=== PATIENT | female | born 1960 | race American Indian/Alaskan Native ===

== ENCOUNTER 2018-12-24 10:10 | Emergency (ER) | payer MEDICARE, MEDICAID ==
[2018-12-24 10:30] VITALS: BP 99/69
--- NOTE | 2018-12-24 10:46 | EDM.PDOC ---
ED HPI GENERAL MEDICAL PROBLEM - General Chief Complaint: Fever Stated Complaint: FEVER Time Seen by Provider: 12/24/18 10:35 Source of Information: Reports: Other (caregiver) History Limitations: Reports: Other - History of Present Illness INITIAL COMMENTS - FREE TEXT/NARRATIVE: This 58 yo female patient was brought to the ED by [facility] due to breathing difficulties and a fever. The caregiver reports the patient started to have a fever this morning and has been breathing fast today. The patient was not acting this way yesterday. The caregiver reports no other people in the residential are ill or have fevers. The patient has not been given anything for her current symptoms. The caregiver reports the patients liver functions have been closely monitored. The patient has been getting her medications as prescribed and did get all of her medications this morning. Onset: Today Duration: Constant Location: Reports: Chest, Generalized Quality: Reports: Other Severity: Severe Improves with: Reports: None Worsens with: Reports: None Context: Reports: Other Associated Symptoms: Reports: Fever/Chills, Shortness of Breath Treatments PSYCHOPAEDIC NURSE: Reports: NSAIDS - Related Data Allergies Allergy/AdvReac Type Severity Reaction Status Date / Time thioridazine HCl Allergy Seizure Verified 12/24/18 10:45 [From [place]] Home Meds: Home Meds Calcium Carbonate/Vitamin D3 [Calcium 600 + Vit D 400 Softgl] 1 tab PO BID 04/25 [History] Carbamide Peroxide [Debrox] 3 - 4 drop EARBOTH .TUES 04/25/16 [History] FA/Lycopene/Lut/MV,Ca,Iron,Min [Centrum] 1 tab PO DAILY 04/25/16 [History] Levothyroxine [Synthroid] 50 mcg PO DAILY 04/25/16 [History] OLANZapine [Zyprexa] 10 mg PO BID 04/25/16 [History] carBAMazepine [Carbamazepine] 500 mg PO BID 04/25/16 [History] traZODone 50 mg PO BEDTIME 04/25/16 [History] Divalproex Sodium [Depakote] 250 mg PO BID 05/07/18 [History] Lactulose 10 gm PO DAILY PRN 05/07/18 [History] Past Medical History HEENT History: Reports: None Cardiovascular History: Reports: None Respiratory History: Reports: None Gastrointestinal History: Reports: None Genitourinary History: Reports: Other (See Below) Other Genitourinary History: incontinent of urine OIL CHANGER History: Reports: None Musculoskeletal History: Reports: None Neurological History: Reports: Seizure Psychiatric History: Reports: Learning Disability, Other (See Below) Other Psychiatric History: bipolar Endocrine/Metabolic History: Reports: Hypothyroidism Hematologic History: Reports: None Immunologic History: Reports: None Oncologic (Cancer) History: Reports: None Dermatologic History: Reports: None - Infectious Disease History Infectious Disease History: Reports: Chicken Pox - Past Surgical History Head Surgeries/Procedures: Reports: None HEENT Surgical History: Reports: None Social & Family History - Caffeine Use Caffeine Use: Reports: None ED ROS GENERAL - Review of Systems Review Of Systems: ROS reveals no pertinent complaints other than HPI. ED EXAM, GENERAL - Physical Exam Exam: See Below Exam Limited By: Other (The patient is a [facility] patient and does not communicate verbally) Eye Exam: Bilateral Eye: EOMI, Normal Inspection, PERRL Ears: Normal External Exam, Normal Canal, Hearing Grossly Normal, Normal TMs Nose: Normal Inspection, Normal Mucosa, No Blood Throat/Mouth: Normal Inspection, Normal Lips, Normal Teeth, Normal Gums, Normal Oropharynx, Normal Voice, No Airway Compromise Head: Atraumatic, Normocephalic Neck: Normal Inspection, Supple, Non-Tender, Full Range of Motion Respiratory/Chest: Decreased Breath Sounds, Rhonchi Cardiovascular: No Edema, No Gallop, No JVD, No Murmur, No Rub, Tachycardia GI/Abdominal: Normal Bowel Sounds, Soft, Non-Tender, No Organomegaly, No Distention, No Abnormal Bruit, No Mass, Other (obese) (Female) Exam: Deferred Rectal (Female) Exam: Deferred Back Exam: Normal Inspection, Full Range of Motion, NT Extremities: Normal Inspection, Other (The patient has a boot on her right ankle for a sprined ankle (2 weeks ago)) Neurological: Alert, Other (The patient is non-verbal) Skin Exam: Increased Warmth Lymphatic: No Adenopathy Course - Vital Signs Last Recorded V/S: Last Vital Signs Temp 39.7 C H 12/24/18 12:16 Pulse 148 H 12/24/18 10:18 Resp 48 H 12/24/18 10:18 BP 99/69 12/24/18 10:18 Pulse Ox 93 L 12/24/18 10:18 - Orders/Labs/Meds Orders: Active Orders 24 hr Category Date Time Status CULTURE BLOOD [BC] Stat Lab 12/24/18 10:24 Ordered CULTURE BLOOD [] Stat Lab 12/24/18 10:36 Received CULTURE STREP A CONFIRMATION [] Stat Lab 12/24/18 10:24 Results CULTURE URINE [] Urgent Lab 12/24/18 10:23 Received STREP SCRN A RAPID W CULT CONF [] Stat Lab 12/24/18 10:24 Ordered Sodium Chloride 0.9% [Normal Saline] 1,000 ml Med 12/24/18 11:52 Ordered IV .BOLUS Blood Culture x2 Reflex Set [OM.PC] Stat Oth 12/24/18 10:23 Ordered Medication Orders Sodium Chloride (Normal Saline) 1,000 mls @ 999 mls/hr IV .BOLUS ONE Stop: 12/24/18 12:52 Last Admin: 12/24/18 12:16 Dose: 999 mls/hr Labs: Laboratory Tests 12/24/18 12/24/18 12/24/18 Range/Units 10:23 10:36 10:36 WBC 6.9 (5.0-10.0) 10^3/uL RBC 4.00 L (4.2-5.4) 10^6/uL Hgb 13.9 (12.0-16.0) g/dL Hct 40.9 (37.0-47.0) % MCV 102.3 H (80-100) fL MCH 34.8 H (27.0-34.0) pg MCHC 34.0 (33.0-35.0) g/dL Plt Count 169 (150-450) 10^3/uL Neut % (Auto) 92.1 H (42.2-75.2) % Lymph % (Auto) 6.4 L (20.5-50.1) % [place] % (Auto) 0.7 L (2-8) % Eos % (Auto) 0.7 L (1.0-3.0) % Baso % (Auto) 0.1 (0.0-1.0) % Sodium (135-145) mmol/L Potassium (3.6-5.0) mmol/L Chloride (101-111) mmol/L Carbon Dioxide (21.0-31.0) mmol/L Anion Gap BUN (7-18) mg/dL Creatinine (0.6-1.3) mg/dL Est Cr Clr Drug Dosing mL/min Estimated GFR (MDRD) BUN/Creatinine Ratio Glucose (74-105) mg/dL Lactic Acid 5.2 H (0.5-2.2) mmol/L Calcium (8.4-10.2) mg/dl Total Bilirubin (0.2-1.0) mg/dL AST (10-42) IU/L ALT (10-60) IU/L Alkaline Phosphatase (42-121) IU/L Ammonia (11-35) umol/L Total Protein (6.7-8.2) g/dl Albumin (3.2-5.5) g/dl Globulin Albumin/Globulin Ratio Urine Color Yellow (YELLOW) Urine Appearance Turbid (CLEAR) Urine pH 5.5 (5.0-9.0) Ur Specific [place] 1.020 (1.005-1.030) Urine Protein 30 H (NEGATIVE) Urine Glucose (UA) Negative (NEGATIVE) Urine Ketones Negative (NEGATIVE) Urine Occult Blood Moderate H (NEGATIVE) Urine Nitrite Negative (NEGATIVE) Urine Bilirubin Negative (NEGATIVE) Urine Urobilinogen 0.2 (0.2-1.0) mg/dL Ur Leukocyte Esterase Large H (NEGATIVE) Urine RBC 30-40 H /HPF Urine WBC >100 H (0-5/HPF) /HPF Ur Epithelial Cells Few /HPF Amorphous Sediment Few (0/HPF) /HPF Urine Bacteria Moderate H (0-FEW/HPF) /HPF Urine Mucus Rare /LPF 12/24/18 12/24/18 Range/Units 10:36 11:07 WBC (5.0-10.0) 10^3/uL RBC (4.2-5.4) 10^6/uL Hgb (12.0-16.0) g/dL Hct (37.0-47.0) % MCV (80-100) fL MCH (27.0-34.0) pg MCHC (33.0-35.0) g/dL Plt Count (150-450) 10^3/uL Neut % (Auto) (42.2-75.2) % Lymph % (Auto) (20.5-50.1) % [place] % (Auto) (2-8) % Eos % (Auto) (1.0-3.0) % Baso % (Auto) (0.0-1.0) % Sodium 138 (135-145) mmol/L Potassium 4.3 (3.6-5.0) mmol/L Chloride 104 (101-111) mmol/L Carbon Dioxide 18.0 L (21.0-31.0) mmol/L Anion Gap 20.3 BUN 33 H (7-18) mg/dL Creatinine 1.3 (0.6-1.3) mg/dL Est Cr Clr Drug Dosing 36.40 mL/min Estimated GFR (MDRD) 42 BUN/Creatinine Ratio 25.38 Glucose 211 H (74-105) mg/dL Lactic Acid (0.5-2.2) mmol/L Calcium 8.5 (8.4-10.2) mg/dl Total Bilirubin 0.9 (0.2-1.0) mg/dL AST 120 H (10-42) IU/L ALT 88 H (10-60) IU/L Alkaline Phosphatase 96 (42-121) IU/L Ammonia 50 H (11-35) umol/L Total Protein 7.1 (6.7-8.2) g/dl Albumin 3.5 (3.2-5.5) g/dl Globulin 3.6 Albumin/Globulin Ratio 0.97 Urine Color (YELLOW) Urine Appearance (CLEAR) Urine pH (5.0-9.0) Ur Specific [place] (1.005-1.030) Urine Protein (NEGATIVE) Urine Glucose (UA) (NEGATIVE) Urine Ketones (NEGATIVE) Urine Occult Blood (NEGATIVE) Urine Nitrite (NEGATIVE) Urine Bilirubin (NEGATIVE) Urine Urobilinogen (0.2-1.0) mg/dL Ur Leukocyte Esterase (NEGATIVE) Urine RBC /HPF Urine WBC (0-5/HPF) /HPF Ur Epithelial Cells /HPF Amorphous Sediment (0/HPF) /HPF Urine Bacteria (0-FEW/HPF) /HPF Urine Mucus /LPF Meds: Medications Generic Name Dose Route Start Last Admin Trade Name Freq PRN Reason Stop Dose Admin Sodium Chloride 1,000 mls @ 999 mls/hr 12/24/18 11:52 12/24/18 12:16 Normal Saline IV 12/24/18 12:52 999 mls/hr .BOLUS ONE Administration Discontinued Medications Generic Name Dose Route Start Last Admin Trade Name Freq PRN Reason Stop Dose Admin Ceftriaxone Sodium 1,000 mg 12/24/18 11:59 12/24/18 12:17 Rocephin IVPUSH 12/24/18 12:00 1,000 mg ONETIME ONE Administration Ceftriaxone Sodium Confirm 12/24/18 12:08 12/24/18 12:17 Rocephin Administered 12/24/18 12:09 Not Given Dose 500 mg .ROUTE .STK-MED ONE Ibuprofen 400 mg 12/24/18 11:52 12/24/18 12:16 Motrin PO 12/24/18 11:53 400 mg ONETIME ONE Administration - Re-Assessments/Exams Free Text/Narrative Re-Assessment/Exam: 12/24/18 11:49 A call was placed to the [facility] in [place] to get previous lab results. The patient's ammonia was 73 on Dec 02 and 55 on November 10. The patient's creatinine was 1.1 in July. Departure - Departure Time of Disposition: 12:20 Disposition: Home, Self-Care 01 Condition: Fair Clinical Impression: UTI (urinary tract infection) Qualifiers: Urinary tract infection type: site unspecified Hematuria presence: with hematuria Qualified Code(s): N39.0 - Urinary tract infection, site not specified ; R31.9 - Hematuria, unspecified - Discharge Information *PRESCRIPTION DRUG MONITORING PROGRAM REVIEWED*: Not Applicable *COPY OF PRESCRIPTION DRUG MONITORING REPORT IN PATIENT GUSTAVO: Not Applicable Instructions: Urinary Tract Infection, Adult, [id number] Forms: ED Department Discharge Care Plan Goals: The patient's caregivers were advised of the examination and lab results during the visit. The patient was given an IV dose of Rocephin while in the ED. The patient was discharged with a script for Keflex (500 mg) to be given 1 by mouth 3 times per day for 7 days. The patient should follow-up with her primary care facility in about 1 week for continued evaluation and further management. If the patient has any additional symptoms or concerns, the patient should either return to the emergency department or visit her primary care facility. - My Orders Last 24 Hours: My Active Orders 12/24/18 10:23 CULTURE URINE [RM] Urgent Blood Culture x2 Reflex Set [OM.PC] Stat 12/24/18 10:24 CULTURE BLOOD [BC] Stat CULTURE STREP A CONFIRMATION [RM] Stat STREP SCRN A RAPID W CULT CONF [RM] Stat 12/24/18 10:36 CULTURE BLOOD [BC] Stat 12/24/18 11:52 Sodium Chloride 0.9% [Normal Saline] 1,000 ml IV .BOLUS - Assessment/Plan Last 24 Hours: My Active Orders 12/24/18 10:23 CULTURE URINE [RM] Urgent Blood Culture x2 Reflex Set [OM.PC] Stat 12/24/18 10:24 CULTURE BLOOD [BC] Stat CULTURE STREP A CONFIRMATION [RM] Stat STREP SCRN A RAPID W CULT CONF [RM] Stat 12/24/18 10:36 CULTURE BLOOD [BC] Stat 12/24/18 11:52 Sodium Chloride 0.9% [Normal Saline] 1,000 ml IV .BOLUS
[2018-12-24 11:04] LABS: ANION GAP 20.3
[2018-12-24] MEDS ORDERED: Sodium Chloride 0.9% 1,000 ML IV ONE (11:52)
[2018-12-24] MEDS ORDERED: Ibuprofen 400 MG Tab PO ONE (11:52)
[2018-12-24] MEDS ORDERED: cefTRIAXone 500 MG Vial IVPUSH ONE (11:59)
[2018-12-24] MEDS ORDERED: cefTRIAXone 500 MG Vial ONE (12:08)
== END 2018-12-24 12:58 | disposition home or self-care (01) ==
LOC: DL.ED 10:10
DX: N39.0 Urinary tract infection, site not specified (principal); Z88.8 Allergy status to other drugs, medicaments and biological substances; Z79.899 Other long term (current) drug therapy
CPT/HCPCS: 36415; 71045; 80053; 81001; 82140; 83605; 85025; 87040; 87081; 87086; 87088; 87186; 87430; 87804; 96361; 96374; 99284; A9270; J0696; J7030; 87077

== ENCOUNTER 2021-06-15 11:53 | Emergency (ER) | payer MEDICARE, MEDICAID ==
[2021-06-15 12:28] VITALS: BP 134/96; PULSE 121
--- NOTE | 2021-06-15 14:21 | EDM.PDOC ---
ED HPI GENERAL MEDICAL PROBLEM - General Chief Complaint: Cardiovascular Problem Stated Complaint: HIGH BLOOD PRESSURE 236/148 Time Seen by Provider: 06/15/21 14:00 Source of Information: Reports: Provider History Limitations: Reports: No Limitations - History of Present Illness INITIAL COMMENTS - FREE TEXT/NARRATIVE: This 60 yo female patient was brought to the ED by her care provider due to changes in behavior, elevated blood pressure and a possible UTI. The patient's blood pressure was in the 240's/150's when taken at the [place]. The patient does have a history of urinary tract infections (a sample was brought with patient). Onset: Today Duration: Constant Location: Reports: Other Quality: Reports: Other Severity: Moderate Improves with: Reports: None Worsens with: Reports: None Context: Reports: Other Associated Symptoms: Reports: Other - Related Data Allergies Allergy/AdvReac Type Severity Reaction Status Date / Time thioridazine HCl Allergy Seizure Verified 06/15/21 12:30 [From [facility]] Home Meds: Home Meds Calcium Carbonate/Vitamin D3 [Calcium 600Mg-D3 400 Unit Sfgl] 1 tab PO BID 04/25/16 [History] Carbamide Peroxide [Debrox] 3 - 4 drop EARBOTH .TUES 04/25/16 [History] FA/Lycopene/Lut/MV,Ca,Iron,Min [Centrum] 1 tab PO DAILY 04/25/16 [History] Levothyroxine [Synthroid] 50 mcg PO DAILY 04/25/16 [History] OLANZapine [Zyprexa] 10 mg PO BID 04/25/16 [History] carBAMazepine [Carbamazepine] 500 mg PO BID 04/25/16 [History] traZODone 50 mg PO BEDTIME 04/25/16 [History] Divalproex Sodium [Depakote] 250 mg PO BID 05/07/18 [History] Lactulose 10 gm PO BID 05/07/18 [History] Acetaminophen [Tylenol Extra Strength] 1,000 mg PO ASDIRECTED PRN 12/27/18 [History] Ibuprofen 400 mg PO ASDIRECTED PRN 12/27/18 [History] metFORMIN [Glucophage XR] 500 mg PO BIDMEALS 06/15/21 [History] Past Medical History HEENT History: Reports: None Cardiovascular History: Reports: None Respiratory History: Reports: None Gastrointestinal History: Reports: None Genitourinary History: Reports: Other (See Below) Other Genitourinary History: incontinent of urine APPLICATION INTEGRATION ARCHITECT History: Reports: None Musculoskeletal History: Reports: None Neurological History: Reports: Seizure Psychiatric History: Reports: Learning Disability, Other (See Below) Other Psychiatric History: bipolar Endocrine/Metabolic History: Reports: Hypothyroidism Hematologic History: Reports: None Immunologic History: Reports: None Oncologic (Cancer) History: Reports: None Dermatologic History: Reports: None - Infectious Disease History Infectious Disease History: Reports: Chicken Pox - Past Surgical History Head Surgeries/Procedures: Reports: None HEENT Surgical History: Reports: None Endocrine Surgical History: Reports: None Neurological Surgical History: Reports: None Dermatological Surgical History: Reports: None Social & Family History - Family History Family Medical History: No Pertinent Family History - Tobacco Use Tobacco Use Status *Q: Never Tobacco User - Caffeine Use Caffeine Use: Reports: Coffee - Recreational Drug Use Recreational Drug Use: No ED ROS GENERAL - Review of Systems Review Of Systems: Comprehensive ROS is negative, except as noted in HPI. ED EXAM, GENERAL - Physical Exam Exam: See Below Exam Limited By: No Limitations General Appearance: Alert, Moderate Distress, Other (Non verbal ) Eye Exam: Bilateral Eye: EOMI, PERRL Ears: Normal External Exam, Normal Canal, Hearing Grossly Normal, Normal TMs Nose: Normal Inspection, Normal Mucosa, No Blood Throat/Mouth: Other (Patient would not cooperate with evaluation.) Head: Atraumatic, Normocephalic Neck: Normal Inspection, Supple, Non-Tender, Full Range of Motion Respiratory/Chest: No Respiratory Distress, Lungs Clear, Normal Breath Sounds, No Accessory Muscle Use, Chest Non-Tender Cardiovascular: Normal Peripheral Pulses, Regular Rate, Rhythm, No Edema, No Gallop, No JVD, No Murmur, No Rub GI/Abdominal: Normal Bowel Sounds, Soft, Non-Tender, No Organomegaly, No Distention, No Abnormal Bruit, No Mass (Female) Exam: Deferred Rectal (Female) Exam: Deferred Back Exam: Normal Inspection, Full Range of Motion, NT Extremities: Normal Inspection, No Pedal Edema Neurological: Alert Psychiatric: Other Skin Exam: Warm, Dry, Intact, Normal Color, No Rash Lymphatic: No Adenopathy Course - Vital Signs Last Recorded V/S: Last Vital Signs Temp 98.2 F 06/15/21 12:27 Pulse 121 H 06/15/21 12:27 Resp 20 06/15/21 12:27 BP 134/96 H 06/15/21 12:27 Pulse Ox 96 06/15/21 12:27 - Orders/Labs/Meds Orders: Active Orders 24 hr Category Date Time Status CULTURE URINE [RM] Stat Lab 06/15/21 12:35 Received Labs: Laboratory Tests 06/15/21 Range/Units 12:35 Urine Color Yellow (YELLOW) Urine Appearance Slightly cloudy (CLEAR) Urine pH 7.5 (5.0-9.0) Ur Specific [place] 1.020 (1.005-1.030) Urine Protein 30 H (NEGATIVE) Urine Glucose (UA) Negative (NEGATIVE) Urine Ketones Negative (NEGATIVE) Urine Occult Blood Trace-intact H (NEGATIVE) Urine Nitrite Positive H (NEGATIVE) Urine Bilirubin Negative (NEGATIVE) Urine Urobilinogen 0.2 (0.2-1.0) mg/dL Ur Leukocyte Esterase Trace H (NEGATIVE) Urine RBC 0-5 /HPF Urine WBC 0-5 (0-5/HPF) /HPF Ur Epithelial Cells Rare (NOT SEEN) /HPF Urine Bacteria Many H (0-FEW/HPF) /HPF Departure - Departure Time of Disposition: 14:19 Disposition: Home, Self-Care 01 Condition: Fair Clinical Impression: UTI (urinary tract infection) Instructions: Urinary Tract Infection, Adult, [id number] Forms: ED Department Discharge Care Plan Goals: The patient and her care provider were advised of the examination and lab results during the visit. The patient was discharged with a script for Macrobid (100 mg) #14 to take 1 by mouth 2 times per day for 7 days. If the patient has any additional symptoms or concerns, the patient should follow-up with her primary care facility or return to the emergency department. Sepsis Event Note (ED) - Evaluation Sepsis Screening Result: No Definite Risk - Focused Exam Vital Signs: Vital Signs Temp Pulse Resp BP Pulse Ox 06/15/21 12:27 98.2 F 121 H 20 134/96 H 96 - My Orders Last 24 Hours: My Active Orders 06/15/21 12:35 CULTURE URINE [RM] Stat - Assessment/Plan Last 24 Hours: My Active Orders 06/15/21 12:35 CULTURE URINE [RM] Stat
== END 2021-06-15 14:25 | disposition home or self-care (01) ==
LOC: DL.ED 11:53
DX: N39.0 Urinary tract infection, site not specified (principal); E03.9 Hypothyroidism, unspecified; Z88.8 Allergy status to other drugs, medicaments and biological substances; Z79.899 Other long term (current) drug therapy
CPT/HCPCS: 81001; 87086; 87088; 87186; 99283

== ENCOUNTER 2022-02-13 12:26 | Observation (INO) | payer MEDICARE, MEDICAID ==
[2022-02-13] MEDS ORDERED: Polyethylene Glycol 3350 Powder 17 GM Packet PO PRN (14:06)
[2022-02-13] MEDS ORDERED: Acetaminophen 325 MG Tab PO PRN (14:06)
[2022-02-13] MEDS ORDERED: HYDROmorphone 0.5 MG/0.5 ML Syringe IVPUSH PRN (14:06)
[2022-02-13] MEDS ORDERED: Albuterol/Ipratropium 3.0-0.5 MG/3 ML Neb Soln NEB PRN (14:06)
[2022-02-13] MEDS ORDERED: Acetaminophen/HYDROcodone 325-10 MG Tab PO PRN (14:06)
[2022-02-13] MEDS ORDERED: Ondansetron 4 MG/2 ML SDV IVPUSH PRN (14:06)
[2022-02-13] MEDS ORDERED: Sodium Chloride 0.9% 10 ML Syringe FLUSH PRN (14:06)
[2022-02-13] MEDS ORDERED: LORazepam 2 MG/ML SDV IVPUSH PRN (14:08)
[2022-02-13] MEDS ORDERED: Flumazenil 0.1 MG/ML 5 ML MDV IVPUSH PRN (14:08)
[2022-02-13] MEDS ORDERED: Glucagon,Human Recombinant 1 MG Vial IM PRN (14:12)
[2022-02-13] MEDS ORDERED: 50% Dextrose in Water 50 ML Syringe IVPUSH PRN (14:12)
[2022-02-13] MEDS ORDERED: Lactated Ringers 1,000 ML IV SCH (14:15)
[2022-02-13] MEDS ORDERED: Lactated Ringers 500 ML IV ONE (14:56)
[2022-02-13] MEDS: Insulin Lispro 100 Units/ML 3 ML Vial SUBCUT SCH (17:57)
[2022-02-13] MEDS: Sodium Chloride 0.9% 10 ML Syringe FLUSH SCH (21:45)
[2022-02-14] MEDS: Insulin Lispro 100 Units/ML 3 ML Vial SUBCUT SCH ×2 (08:44→16:59)
[2022-02-14] MEDS: Sodium Chloride 0.9% 10 ML Syringe FLUSH SCH (08:46)
[2022-02-14] MEDS ORDERED: Potassium Chloride 10 MEQ in Premix Bag 1 BAG IV ONE (09:00)
[2022-02-14] MEDS ORDERED: Acetaminophen/HYDROcodone 325-5 MG Tab PO PRN (11:43)
[2022-02-15 06:51] LABS: ANION GAP 18.8 mEq/L (7-13)
[2022-02-15] MEDS: Insulin Lispro 100 Units/ML 3 ML Vial SUBCUT SCH ×2 (08:12→19:17)
[2022-02-15] MEDS ORDERED: Magnesium Sulfate/Water 2 GM in Premix Bag 1 BAG IV ONE (08:13)
[2022-02-15] MEDS: Sodium Chloride 0.9% 10 ML Syringe FLUSH SCH ×2 (09:48→21:15)
[2022-02-15] MEDS: Dextrose 5 %-0.2 % NaCl 1,000 ML IV SCH ×2 (12:13→21:16)
[2022-02-16] MEDS: Dextrose 5 %-0.2 % NaCl 1,000 ML IV SCH ×2 (06:18→16:42)
[2022-02-16 07:13] LABS: ANION GAP 19.9 mEq/L (7-13)
[2022-02-16] MEDS: Insulin Lispro 100 Units/ML 3 ML Vial SUBCUT SCH ×2 (09:45→19:38)
[2022-02-16] MEDS: Sodium Chloride 0.9% 10 ML Syringe FLUSH SCH (09:47)
[2022-02-16] MEDS ORDERED: OLANZapine 10 MG Vial IM ONE (16:36)
[2022-02-16] MEDS ORDERED: Water For Injection, Sterile 20 ML ONE (16:52)
[2022-02-16 22:44] VITALS: BP 109/70; PULSE 58
== END 2022-02-16 20:00 ==
LOC: DL.MS 13:37
PROVIDERS: ADMIT Internal Medicine; ATTEND Internal Medicine
DX: G93.49 Other encephalopathy (principal); E78.5 Hyperlipidemia, unspecified; E11.22 Type 2 diabetes mellitus with diabetic chronic kidney disease; N18.30 Chronic kidney disease, stage 3 unspecified; D63.1 Anemia in chronic kidney disease; E03.9 Hypothyroidism, unspecified; Z20.822 Contact with and (suspected) exposure to COVID-19
CPT/HCPCS: 36415; 80053; 82306; 82947; 83735; 84439; 84443; 85025; 87086; 96372; 96375; G0378; G0379; J3475; J3480; J3490; J7042; J7120; U0002